=== PATIENT | female | born 1960 | race Caucasian/White ===

== ENCOUNTER 2017-02-02 09:00 | Outpatient (RCR) | payer BC | END 2017-02-15 15:11 | disposition home or self-care (01) | PROVIDERS: ATTEND Orthopaedic Surgery | DX: M79.641 Pain in right hand (principal); M79.642 Pain in left hand; Z98.890 Other specified postprocedural states ==

== ENCOUNTER 2017-07-06 05:59 | Outpatient (CLI) | payer BC ==
[~2017-07-06] VITALS: Ht 162.6 cm; Wt 80.3 kg
[2017-07-06] MEDS ORDERED: ERGO50006 PO (09:14)
[2017-07-06] MEDS ORDERED: GABA-488 PO (09:14)
[2017-07-06] MEDS ORDERED: LEVO25TA5 PO (09:17)
[2017-07-07] MEDS ORDERED: PANT40TA2 PO (13:19)
== END 2017-07-06 09:26 ==
LOC: PREOP 05:59
PROVIDERS: ATTEND Surgery
DX: Z01.818 Encounter for other preprocedural examination (principal); R10.9 Unspecified abdominal pain; K21.9 Gastro-esophageal reflux disease without esophagitis; Z86.010 Personal history of colon polyps

== ENCOUNTER 2017-07-07 11:03 | Day surgery (SDC) | payer BC ==
[~2017-07-07] VITALS: Ht 162.6 cm; Wt 80.3 kg
[~2017-07-07 11:03] MED LIST: ERGO50006 PO; GABA-488 PO; LEVO25TA5 PO
--- NOTE | 2017-07-07 11:10 | Progress Note-Pre Operative ---
Pre-Operative Progress Note H&P Reviewed The H&P was reviewed, patient examined and no changes noted. Date Seen by Provider: Jul 07, 2017 Time Seen by Provider: 11:00 Date H&P Reviewed: Jul 07, 2017 Time H&P Reviewed: 11:00 Pre-Operative Diagnosis: GERD, abd pain, hx polyp APOLINAR LORD MD Jul 07, 2017 11:10 am
--- NOTE | 2017-07-07 11:10 | Conscious Sedation/ASA ---
Conscious Sedation Pre-Proced Time Reviewed: 11:00 ASA Class: 2 Airway Mallampati Classification: ([place] appropriate class) I. II. III, IV Lungs Heart ASA score ASA 1: a normal healthy patient ASA 2: a patient with a mild systemic disease (mid diabetes, controlled hypertension, obesity ASA 3: a patient with a severe systemic disease that limits activity (angina , COPD, prior Myocardial infarction) ASA 4: a patient with an incapacitating disease that is a constant threat to life (CHF, renal failure) ASA 5: a moribund patient not expected to survive 24 hrs. (ruptured aneurysm) ASA 6: a declared brain patient whose organs are being harvested. For emergent operations, add the letter E after the classification Grade 2 Sedation Plan: Analgesia, Amnesia, Plan communicated to team members, Discussed options with patient/fam, Discussed risks with patient/fam Note The patient is an appropriate candidate to undergo the planned procedure, sedation, and anesthesia. The patient immediately re-assessed prior to indication. APOLINAR LORD MD Jul 07, 2017 11:10 am
[2017-07-07] MEDS ORDERED: morphine INJ 10 MG/ML 1ML (SYR OR VIAL) IV PRN (11:15)
[2017-07-07] MEDS ORDERED: LIDOCAINE JELLY 2% (XYLOCAINE) 5 ML TUBE MM PRN (11:15)
[2017-07-07] MEDS ORDERED: ACETAMINOPHEN 325 MG TABLET/CAPLET (TYLENOL) PO PRN (11:15)
[2017-07-07] MEDS ORDERED: ONDANSETRON 4 MG/2 ML (SDV) Z0FRAN IV PRN (11:15)
[2017-07-07] MEDS ORDERED: HURRICAINE EXT TUBE (BENZOCAINE) XX PRN (11:15)
[2017-07-07] MEDS ORDERED: HYDROcodone/APAP 5 MG/325 MG (LORTAB) TAB PO PRN (11:15)
[2017-07-07] MEDS ORDERED: NS IV 500 ML 500 ML IV PRN (11:30)
[2017-07-07] MEDS ORDERED: fentaNYL INJECTION 100 MCG/2 ML AMP ONE ×2 (12:09)
[2017-07-07] MEDS ORDERED: LIDOCAINE JELLY 2% (XYLOCAINE) 5 ML TUBE ONE (12:09)
[2017-07-07] MEDS ORDERED: MIDAZOLAM 2 MG/2 ML (VERSED) VIAL ONE ×5 (12:10)
[2017-07-07] MEDS: fentaNYL INJECTION 100 MCG/2 ML AMP IVP PRN ×3 (12:27→13:00)
[2017-07-07 12:30] VITALS: BP 133/91
[2017-07-07] MEDS: MIDAZOLAM 2 MG/2 ML (VERSED) VIAL IVP PRN ×4 (12:38→12:55)
--- NOTE | 2017-07-07 13:18 | Progress Note-Post Operative ---
Post-Operative Progess Note Surgeon (s)/It Help Desk Associate (s) Surgeon APOLINAR LORD MD It Help Desk Associate: none Pre-Operative Diagnosis GERD, abd pain, hx polyp Post-Operative Diagnosis reflux esophagits(class B0, small-mod HH(2cm), mild gastitis. chronic stage 1 ext and int hemorrhoids, mild-mod diverticulosis. Procedure & Operative Findings Date of Procedure 07/07/17 Procedure Performed/Findings EGD with bx. Colonoscopy. Anesthesia Type CS Estimated Blood Loss Estimated blood loss (mL): minimal Specimens/Packing Specimens Removed GE jxn, antrum APOLINAR LORD MD Jul 07, 2017 1:18 pm
[2017-07-07] MEDS ORDERED: PANT40TA2 PO (13:19)
--- NOTE | 2017-07-07 13:20 | Discharge Inst-Surgical ---
D/C Lap Instructions-KIDO New, Converted, or Re-Newed RX: RX on Chart Follow Up PRN Activity as tolerated High Fiber Diet 25g or more per day Avoid Alcohol, Caffeine, Spicy [place] and Acid foods. Drink 64 fluid oz or more of fluids per day. Symptoms to Report: Fever over 101 degree F, Nausea/Vomiting If any problems/questions: Contact your physician or go to Emergency Room APOLINAR LORD MD Jul 07, 2017 1:20 pm
[2017-07-07 13:45] VITALS: BP 118/77
[2017-07-07 14:15] VITALS: BP 123/88
[2017-07-07 14:25] VITALS: BP 123/88
--- NOTE | 2017-07-07 20:54 | OPERATIVE REPORT ---
DATE OF SERVICE: 07/07/2017 ATTENDING PRIMARY CARE PHYSICIAN: Dr. Zhang. PREOPERATIVE DIAGNOSES: Abdominal pain, gastroesophageal reflux disease, history of colon polyps. POSTOPERATIVE DIAGNOSES: Reflux esophagitis, class B; small hiatal hernia, approximately 2 cm in size; mild gastritis. Chronic stage I external and internal hemorrhoids, mild to moderate sigmoid diverticulosis. PROCEDURES PERFORMED: EGD with biopsy, colonoscopy. SURGEON: Apolinar Graves MD. ANESTHESIA: Conscious sedation. ESTIMATED BLOOD LOSS: Minimal. FINDINGS: EGD: Reflux esophagitis, class B; small hiatal hernia, approximately 2 cm in size; mild gastritis; pylorus and duodenum appeared normal. Colonoscopy: Chronic stage I external and internal hemorrhoids, mild to moderate sigmoid diverticulosis with no mucosal inflammatory change to indicate any active diverticulitis. The remainder of the colon was normal. DISPOSITION: The patient tolerated the procedure well. INDICATIONS: The patient is a 57-year-old female with multiple gastrointestinal complaints. She reports that she developed crampy abdominal pain towards the flank on an intermittent basis for the past 9 months. She is unsure of what this is; however, states that the pain is there consistently. She also reports crampy abdominal pain towards the abdomen as well. She has a history of peptic ulcer disease as well as gastroesophageal reflux disease as well as history of colon polyps. She underwent an EGD and colonoscopy in 2001, were several polyps were identified and removed and found to be benign. A second followup colonoscopy was in 2006, where 2 polyps were identified and these were again benign. She does report worsening issues with reflux as well as occasional nausea. She had Hemoccult test, which was positive. DESCRIPTION OF PROCEDURE: The patient was brought to the endoscopy suite, laid in the left lateral decubitus position. After adequate IV pain, sedating medications and conscious sedation anesthesia, a mouthpiece was applied. The endoscope was then placed in the mouth, visualizing the pharynx and hypopharynx. The endoscope was placed in the mouth, visualizing the pharynx and hypopharyngeal region. Vocal cords, epiglottis and vallecula identified and appeared to be normal. The endoscope was then gently intubated into esophageal opening, esophagus was insufflated. Endoscope was then advanced to the first, second and third portions of the esophagus. At the level of the GE junction, a reflux esophagitis, class B identified. There were no ulcers or strictures identified in this region. A biopsy was taken using forceps with visualization of good hemostasis. The endoscope was then easily advanced in the stomach and then endoscope retroflexed visualizing a small to a moderate size hiatal hernia approximately 2 cm in size. There was a mild gastritis noted. There were no formal ulcers, polyps or any neoplasms identified. A biopsy was taken of the stomach antrum for H. pylori with forceps with visualization of good hemostasis. The endoscope was then advanced through the pylorus and the first and second portions of the duodenum, which appeared normal with no distal obstructions. The endoscope was slowly withdrawn taking a second look and suctioning residual air with no additional findings. The patient tolerated this portion of the procedure well. We will recommend the necessary lifestyle and diet accommodation including small and more frequent meals, avoidance of eating at night as well as head elevation while lying supine. She also needs to avoid caffeinated beverages, spicy, greasy and acidic foods. We will also start her on Protonix 40 mg daily. If she has continued reflux symptoms that the progresses to regurgitation, then we will proceed with further evaluations and studies, included an esophageal manometry study for possible hiatal hernia repair. Under the same conscious sedation anesthesia, we then proceeded with the colonoscopy portion of the procedure. Chronic mild stage 1 external and internal hemorrhoids were identified which were not actively edematous or inflamed and no bleeding. Normal sphincter tone was felt and there were no palpable masses. The endoscope was then intubated to the anus and rectum and gently insufflated. The endoscope was then advanced to the valves of Ro in the rectum with no polyps or any neoplasms identified. The endoscope was then advanced to the sigmoid colon where a mild to moderate sigmoid diverticulosis identified. There were no mucosal inflammatory changes to indicate any active diverticulitis. The endoscope was then advanced to the remainder of the descending, transverse, ascending colon and the cecum. These segments were normal. There were no polyps or any neoplasms identified throughout the colon or rectum. There were also no inflammatory changes. The endoscope was then slowly withdrawn taking a second look and suctioning residual air with no additional findings. The patient tolerated the procedure well. We will have her continue with a medical management with a high fiber diet with at least 30 grams of fiber per day as well as at least 64 fluid ounces of water daily to promote soft stools on a daily basis. Job ID: [id number] DocumentID: [id number] Dictated Date: 07/07/2017 13:18:44 Dope Edger Date: 07/07/2017 20:53:31 Dictated By: APOLINAR GRAVES MD
== END 2017-07-07 14:25 | disposition home or self-care (01) ==
LOC: ENDO 11:03
PROVIDERS: ATTEND Surgery
DX: K21.0 Gastro-esophageal reflux disease with esophagitis (principal); K44.9 Diaphragmatic hernia without obstruction or gangrene; K29.70 Gastritis, unspecified, without bleeding; K57.30 Diverticulosis of large intestine without perforation or abscess without bleeding; K64.0 First degree hemorrhoids; M79.7 Fibromyalgia; Z86.718 Personal history of other venous thrombosis and embolism; E03.9 Hypothyroidism, unspecified; Z79.899 Other long term (current) drug therapy; Z87.891 Personal history of nicotine dependence

== ENCOUNTER 2017-07-27 15:14 | Outpatient (RCR) | payer BC ==
[~2017-07-27 15:14] MED LIST changes: +PANT40TA2 PO
== END 2017-10-25 | disposition home or self-care (01) ==
LOC: LAB 15:14
PROVIDERS: ATTEND Surgery
DX: R19.7 Diarrhea, unspecified (principal); K92.1 Melena
CPT/HCPCS: 87324; 87449

== ENCOUNTER 2018-08-15 10:26 | Emergency (ER) | payer BC ==
[~2018-08-15] VITALS: Ht 154.9 cm; Wt 77.1 kg
[2018-08-15] MEDS ORDERED: KETOROLAC 30 MG/ML VIAL IVP ONE (11:00)
--- NOTE | 2018-08-15 11:05 | ED Headache ---
General Chief Complaint: Head/Cervical Problems Stated Complaint: SEVERE HEADACHE Nursing Triage Note: AMB TO ED FROM [facility] PATIENT HAS HEADACHE FJOR 2 WEEKS. HEADACHE HAS BEEN INTERMITTEN. Nursing Sepsis Screen: No Definite Risk Source: patient, family (daughter) Exam Limitations: no limitations History of Present Illness Date Seen by Provider: Aug 15, 2018 Time Seen by Provider: 10:29 Initial Comments Patient presents the ER by private conveyance from urgent care where she was seen just prior to arrival. She's had a headache it's been daily for the past 2 weeks. She says the headache is left-sided with some paresthesias or tingling on the left side of her face and cheek. Sometimes extend into her temporal area. She has not had any viral illnesses or sickness lately. She thinks 3 weeks ago she started summer quit for restless leg syndrome. The daughter had a lot of concerns about possibility of stroke and that may be because of that tingling and headache she might be having some other neurologic symptoms and so urgent care practitioner called ahead and gave report and sent the patient to the ER for further evaluation. The patient has a history of migraine headaches but this is different. There is no photophobia and phonophobia throbbing. She says the headache comes all throughout the day when she is at work as well as at night last for 10-12 hrs. or more and is only marginally helped with ibuprofen. She uses ibuprofen chronically for her bursitis and fibromyalgia. She does not have a history of coronary artery disease atrial fibrillation, strokes. She is a historical smoker. She's not used Tylenol aspirin or Excedrin or any other medication for it. She's not having any ear pain, ears underwater popping sensation, runny nose, sore throat, cough congestion and fever colds or chills. She did have some nausea but after a shot of Zofran and her nausea went away from the urgent care. Allergies and Home Medications Allergies Coded Allergies: Sulfa (Sulfonamide Antibiotics) (Verified Allergy, Intermediate, RASH, ) Tetracyclines (Verified Allergy, Intermediate, GI UPSET, 07/06/17) amoxicillin (Verified Allergy, Intermediate, GI UPSET, 07/06/17) clavulanic acid (Verified Allergy, Intermediate, GI UPSET, 07/06/17) fentanyl (Verified Allergy, Unknown, 08/15/18) morphine (Verified Allergy, Unknown, RASH, 07/07/17) promethazine (Verified Allergy, Unknown, RASH, 07/07/17) Patient Home Medication List Home Medication List Reviewed: Yes Review of Systems Review of Systems Constitutional: No chills, No diaphoresis Eyes: Denies Blindness, Denies Blurred Vision, Denies Photophobia Ears, Nose, Mouth, Throat: denies ear pain, denies ear discharge Respiratory: No cough, No phlegm, No short of breath Cardiovascular: No chest pain, No edema, No Hx of Intervention, No palpitations , No syncope, No vascular heart diseas Gastrointestinal: No abdominal pain, No constipation, No diarrhea; nausea, vomiting Genitourinary: No discharge, No dysuria Musculoskeletal: No back pain, No joint pain Past Iwioqoi-Ewlwsq-Bxziqr Hx Patient Social History Alcohol Use: Denies Use Recreational Drug Use: No Smoking Status: Former Smoker Type Used: Cigarettes Former Smoker, Quit: Jul 06, 2009 Recent Foreign Travel: No Contact w/Someone Who Travel: No Recent Infectious Disease Expo: No Recent Hopitalizations: No Immunizations Up To Date Tetanus Booster (TDap): Unknown Date of Pneumonia Vaccine: May 30, 2016 Date of Influenza Vaccine: May 30, 2016 Seasonal Allergies Seasonal Allergies: Yes (SINUS INFECTION LAST 9 MONTHS) Past Medical History Surgeries: Yes (RT SHOULDER, TORN BICEPS REPAIR) Appendectomy, Gallbladder, Hysterectomy, Oophorectomy, Tonsillectomy Respiratory: Yes Pulmonary Embolism Cardiac: Yes (DVT x5) Deep Vein Thrombosis Neurological: Yes Headaches /Migraines Reproductive Disorders: No Sexually Transmitted Disease: No Gastrointestinal: Yes (BLOATING/ABD PAIN, HX POLYPS) Gastroesophageal Reflux, Chronic Constipation, Chronic Diarrhea, Polyps Musculoskeletal: Yes Fibromyalgia Endocrine: Yes Loss of Vision: Bilateral Hearing Impairment: Denies Cancer: No Psychosocial: No Integumentary: No Blood Disorders: Yes (MILD ANEMIA) Adverse Reaction/Blood Tranf: No Physical Exam Vital Signs Vital Signs - First Documented 08/15/18 08/15/18 10:29 11:52 Temp 96.2 Pulse 68 Resp 18 B/P (MAP) 193/113 (139) Pulse Ox 98 O2 Delivery Room Air Capillary Refill : Less Than 3 Seconds Height, Weight, BMI Height: 5'1.00" Weight: 170lbs. 0.0oz. 77.790186sl; 30.4 BMI Method:Stated General Appearance: WD/WN, mild distress HEENT: PERRL/EOMI, normal ENT inspection, pharynx normal, other (mild otosclerosis with some clear effusion noted bilaterally) Neck: non-tender, full range of motion, supple, normal inspection Cardiovascular: normal peripheral pulses, regular rate, rhythm, no edema, no murmur Respiratory: chest non-tender, lungs clear, normal breath sounds, no respiratory distress, no accessory muscle use Extremities: normal range of motion, non-tender, normal inspection, no pedal edema, normal capillary refill Psychiatric: alert, oriented x 3; No lethargic [place] Nerves: normal hearing, normal speech, PERRL Coordination/Gait: normal finger to nose, normal gait Motor/Sensory: no motor deficit, no sensory deficit, no pronator drift Reflexes: 2+ Knee (R), 2+ Knee (L) Skin: normal color, warm/dry Progress/Results/Core Measures Results/Orders Lab Results Laboratory Tests Test 08/15/18 11:11 08/15/18 11:47 Range/Units Urine Color YELLOW Urine Clarity CLEAR Urine pH 5 5-9 Urine Specific [place] 1.010 L 1.016-1.022 Urine Protein NEGATIVE NEGATIVE Urine Glucose (UA) NEGATIVE NEGATIVE Urine Ketones NEGATIVE NEGATIVE Urine Nitrite NEGATIVE NEGATIVE Urine Bilirubin NEGATIVE NEGATIVE Urine Urobilinogen NORMAL NORMAL MG/DL Urine Leukocyte Esterase NEGATIVE NEGATIVE Urine RBC (Auto) NEGATIVE NEGATIVE Urine RBC NONE /HPF Urine WBC NONE /HPF Urine Squamous Epithelial Cells NONE /HPF Urine Renal Epithelial Cells NONE /HPF Urine Crystals NONE /LPF Urine Bacteria NEGATIVE /HPF Urine Casts NONE /LPF Urine Mucus SMALL H /LPF Urine Culture Indicated NO Urine Opiates Screen NEGATIVE NEGATIVE Urine Oxycodone Screen NEGATIVE NEGATIVE Urine Methadone Screen NEGATIVE NEGATIVE Urine Propoxyphene Screen NEGATIVE NEGATIVE Urine Barbiturates Screen NEGATIVE NEGATIVE Ur Tricyclic Antidepressants Screen NEGATIVE NEGATIVE Urine Phencyclidine Screen NEGATIVE NEGATIVE Urine Amphetamines Screen NEGATIVE NEGATIVE Urine Methamphetamines Screen NEGATIVE NEGATIVE Urine Benzodiazepines Screen NEGATIVE NEGATIVE Urine Cocaine Screen NEGATIVE NEGATIVE Urine Cannabinoids Screen NEGATIVE NEGATIVE White Blood Count 7.3 4.3-11.0 10^3/uL Red Blood Count 4.96 4.35-5.85 10^6/uL Hemoglobin 14.2 11.5-16.0 G/DL Hematocrit 43 35-52 % Mean Corpuscular Volume 86 80-99 FL Mean Corpuscular Hemoglobin 29 25-34 PG Mean Corpuscular Hemoglobin Concent 33 32-36 G/DL Red Cell Distribution Width 13.6 10.0-14.5 % Platelet Count 337 130-400 10^3/uL Mean Platelet Volume 8.9 7.4-10.4 FL Neutrophils (%) (Auto) 48 42-75 % Lymphocytes (%) (Auto) 44 12-44 % Monocytes (%) (Auto) 7 0-12 % Eosinophils (%) (Auto) 1 0-10 % Basophils (%) (Auto) 0 0-10 % Neutrophils # (Auto) 3.5 1.8-7.8 X 10^3 Lymphocytes # (Auto) 3.2 1.0-4.0 X 10^3 Monocytes # (Auto) 0.5 0.0-1.0 X 10^3 Eosinophils # (Auto) 0.0 0.0-0.3 10^3/uL Basophils # (Auto) 0.0 0.0-0.1 10^3/uL Erythrocyte Sedimentation Rate 12 0-30 MM/HR Sodium Level 142 135-145 MMOL/L Potassium Level 3.9 3.6-5.0 MMOL/L Chloride Level 109 H 98-107 MMOL/L Carbon Dioxide Level 22 21-32 MMOL/L Anion Gap 11 5-14 MMOL/L Blood Urea Nitrogen 19 H 7-18 MG/DL Creatinine 0.80 0.60-1.30 MG/DL Estimat Glomerular Filtration Rate > 60 BUN/Creatinine Ratio 24 Glucose Level 87 70-105 MG/DL Calcium Level 9.9 8.5-10.1 MG/DL Corrected Calcium 9.7 8.5-10.1 MG/DL Total Bilirubin 0.5 0.1-1.0 MG/DL Aspartate Amino Transf (AST/SGOT) 18 5-34 U/L Alanine Aminotransferase (ALT/SGPT) 19 0-55 U/L Alkaline Phosphatase 78 40-136 U/L Troponin I < 0.30 <0.30 NG/ML C-Reactive Protein High Sensitivity 0.11 0.00-0.50 MG/DL Total Protein 7.0 6.4-8.2 GM/DL Albumin 4.2 3.2-4.5 GM/DL Thyroid Stimulating Hormone (TSH) 3.09 0.35-4.94 UIU/ML Reza Cobb - SUDARSHAN FU Cbc With Automated Diff (08/15/18 10:56) Comprehensive Metabolic Panel (08/15/18 10:56) Hs C Reactive Protein (08/15/18 10:56) Drug Screen Stat (Urine) (08/15/18 10:56) Thyroid Stimulating Hormone (08/15/18 10:56) Troponin I (08/15/18 10:56) Ua Culture If Indicated (08/15/18 10:56) Erythrocyte Sedimentation Rate (08/15/18 10:56) Ct Head Wo (08/15/18 10:56) Saline Lock/Iv-Start (08/15/18 10:56) Chest 1 View, Ap/Pa Only (08/15/18 10:56) Ketorolac Injection (Toradol Injection) (08/15/18 11:00) Fentanyl Injection (Sublimaze Injection (08/15/18 12:30) Hydrocodone/Apap 5/325 Tablet (Lortab 5 (08/15/18 13:15) Acetaminophen Tablet (Tylenol Tablet) (08/15/18 13:15) Diphenhydramine Tablet (Benadryl Tablet) (08/15/18 13:15) Medications Given in ED Current Medications Medications Dose Ordered Sig/Sayda Route Start Time Stop Time Status Last Admin Dose Admin Acetaminophen 500 mg ONCE ONCE PO 08/15/18 13:15 08/15/18 13:16 DC 08/15/18 13:19 500 MG Acetaminophen/ Hydrocodone Bitart 1 tab ONCE ONCE PO 08/15/18 13:15 08/15/18 13:16 DC 08/15/18 13:19 1 TAB Diphenhydramine HCl 50 mg ONCE ONCE PO 08/15/18 13:15 08/15/18 13:16 DC 08/15/18 13:16 50 MG Ketorolac Tromethamine 30 mg ONCE ONCE IVP 08/15/18 11:00 08/15/18 11:01 DC 08/15/18 11:20 30 MG Vital Signs/I&O 08/15/18 08/15/18 10:29 11:52 Temp 96.2 Pulse 68 65 Resp 18 18 B/P (MAP) 193/113 (139) 138/72 (94) Pulse Ox 98 O2 Delivery Room Air Blood Pressure Mean: 139 Progress Progress Note : Time: 11:07 Progress Note Certainly concerning red flags for a change in her headache pattern, headaches that wake her up and headaches that having going on for the past 2 weeks. We will get a CT scan to rule out intracranial pathologies. Since she has the paresthesias of her left face and no tenderness to palpation on the temporal artery region makes me think about trigeminal neuralgias. She had chickenpox as a child but has never had shingles. There is no erythematous or itchy rash. We' ll start with some pain medicine Toradol 30 mg IV. She says at the urgent care her blood pressure was normal 138 systolic but here is 190. She does appear quite anxious and her daughters strong concerns for stroke probably does not help this. Her NIH is 1 pt for facial parasthesias alone. CVAs are not usually intermittent like her pattern for the past two weeks but if there was a stroke 2 weeks ago then it should be evident on non-contrast CT. I discussed with her our workup plan to include EKG chest x-ray labs urine and a CT head. If her blood pressure does not improve with some rest and Toradol and we can consider more invasive treatment if necessary. As far as her daughter's concerned that the patient was acting "slowed mentation" it is my impression she is acting consistent with somebody who is not having a lot of sleep and having an unrelenting headache for the past 2 weeks. Her daughter has requested that we give her aspirin to help treat her stroke like symptoms. 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 We will hold off any oral medications until we have completed more of a workup. She has no meningismus signs, fever or evidence of sirs criteria. Initial ECG Impression Date: Aug 15, 2018 Diagnostic Imaging Diagonstic Imaging: Xray Plain Films/CT/US/NM/MRI: chest (1v) Comments No acute cardiopulmonary processes noted 1 view chest. No comparative x-rays. [facility] [place], [place] NAME: GAGE CÁRDENAS [facility] REC#: [id number] PT STATUS: REG ER : 1960 PHYSICIAN: SUDARSHAN FU MD ADMIT DATE: 08/15/18/ER Draft Date of Exam:08/15/18 CHEST 1 VIEW, AP/PA ONLY INDICATION: Headache and elevated blood pressure. TIME OF EXAM: 11:17 a.m. No prior studies are available for comparison. The heart size is normal. The pulmonary vascularity is unremarkable. The lungs are clear. No infiltrate, effusion or pneumothorax is detected. IMPRESSION: No acute cardiopulmonary process is detected. Dictated on workstation # [id number] Dict: 08/15/18 1128 Trans: 08/15/18 1130 [facility] [id number] Interpreted by: LAURENCE ALBERT MD Electronically signed by: Reviewed: Reviewed by Me Diagonstic Imaging: CT (without contrast) Plain Films/CT/US/NM/MRI: head Comments VIA [facility]. [place], [place] NAME: GAGE CÁRDENAS [facility] REC#: [id number] PT STATUS: REG ER : 1960 PHYSICIAN: SUDARSHAN FU MD ADMIT DATE: 08/15/18/ER Draft Date of Exam:08/15/18 CT HEAD WO CLINICAL INDICATION: Patient with left-sided headache frontal and back. EXAM: Axial CT scan of the brain without contrast. COMPARISON: None. FINDINGS: There is no evidence of acute cerebral infarct, intracranial hemorrhage, or gross mass effect. The brain parenchymal volume appears appropriate for patient's age. There are small focal and patchy areas of low-attenuation white matter changes seen throughout both cerebral hemispheres. There is normal martini-white matter distinction. There is no significant midline shift or herniation. There is no evidence of hydrocephalus. The basal cisterns are unremarkable. The skull, extracranial soft tissue, and orbits are unremarkable. The paranasal sinuses are unremarkable. Temporal bones show no significant abnormality. IMPRESSION: 1: Unremarkable CT scan of the brain for age. 2: Suspected chronic small vessel ischemic disease. Dictated on workstation # [id number] Dict: 08/15/18 1225 Trans: 08/15/18 1230 [id number] Interpreted by: INDIRA JONES MD Electronically signed by: Reviewed: Reviewed by Me Departure Impression Primary Impression: Headache Qualified Codes: R51 - Headache Additional Impression: Trigeminal neuralgia of left side of face Disposition: 01 HOME, SELF-CARE Condition: Stable Departure-Patient Inst. Decision time for Depature: 13:49 Referrals: KAMARI BARRIGA MD (PCP/Family) Primary Care Physician Patient Instructions: Trigeminal Neuralgia Add. Discharge Instructions: Tylenol 1000 mg every 8 hours in addition to ibuprofen 800 mg every 8 hours. If you're still having severe pain you can try the hydrocodone one tablet every 6 hours as needed.. Nausea you can take one tablet of Zofran place under your tongue and allowed to dissolve every 6 hours as needed. Call outpatient MRI to get set up for your brain MRI today or tomorrow. Follow- up with Dr. Barriga later this week or early next week for the results. All discharge instructions reviewed with patient and/or family. Voiced understanding. Scripts Ondansetron (Ondansetron Odt) 4 Mg Tab.rapdis 4 MG PO Q6H PRN for NAUSEA/VOMITING, #10 TAB 0 Refills Prov: SUDARSHAN FU 08/15/18 Hydrocodone Bit/Acetaminophen (Hydrocodone/Acetaminophen 5/325mg Tablet) 1 Tab Tab 1-2 EACH PO Q6H PRN for BREAKTHROUGH PAIN MDD 10, #15 TAB 0 Refills Prov: SUDARSHAN FU 08/15/18 Copy Copies To 1: KAMARI BARRIGA MD, TITUS J Aug 15, 2018 11:05
[2018-08-15 11:17] LABS: BILIRUBIN,URINE NEGATIVE (NEGATIVE); CLARITY,URINE CLEAR; COLOR,URINE YELLOW; GLUCOSE, URINE (UA) NEGATIVE (NEGATIVE); KETONES,URINE NEGATIVE (NEGATIVE); LEUKOCYTE ESTERASE ,URINE NEGATIVE (NEGATIVE); NITRITE,URINE NEGATIVE (NEGATIVE); PH,URINE 5 (5-9); PROTEIN,URINE NEGATIVE (NEGATIVE); UROBILINOGEN,URINE NORMAL (NORMAL)
--- NOTE | 2018-08-15 11:31 | Diagnostic Imaging Report ---
INDICATION: Headache and elevated blood pressure. TIME OF EXAM: 11:17 a.m. No prior studies are available for comparison. The heart size is normal. The pulmonary vascularity is unremarkable. The lungs are clear. No infiltrate, effusion or pneumothorax is detected. IMPRESSION: No acute cardiopulmonary process is detected. Dictated by: Dictated on workstation # [id number]
[2018-08-15 11:35] LABS: AMPHETAMINE SCREEN, URINE NEGATIVE (NEGATIVE); BARBITURATE SCREEN URINE NEGATIVE (NEGATIVE); BENZODIAZEPINES SCREEN URINE NEGATIVE (NEGATIVE); CANNABINOID SCREEN, URINE NEGATIVE (NEGATIVE); COCAINE SCREEN URINE NEGATIVE (NEGATIVE); METHADONE STAT NEGATIVE (NEGATIVE); METHAMPHETAMINE SCREEN URINE S NEGATIVE (NEGATIVE); OPIATE SCREEN URINE NEGATIVE (NEGATIVE); OXYCODONE STAT NEGATIVE (NEGATIVE); PROPOXYPHENE STAT NEGATIVE (NEGATIVE); TRICYCLIC ANTIDEPRESSANTS SCRE NEGATIVE (NEGATIVE)
[2018-08-15 11:52] VITALS: BP 138/72
[2018-08-15 11:52] LABS: BASOPHILS % (AUTO) 0 % (0-10); EOSINOPHILS % (AUTO) 1 % (0-10); HEMATOCRIT 43 % (35-52); HEMOGLOBIN 14.2 G/DL (11.5-16.0); LYMPHOCYTES # (AUTO) 3.2 X 10^3 (1.0-4.0); LYMPHOCYTES % (AUTO) 44 % (12-44); MEAN CORPUSCULAR HEMOGLOBIN 29 PG (25-34); MEAN CORPUSCULAR HGB CONC 33 G/DL (32-36); MEAN CORPUSCULAR VOLUME 86 FL (80-99); MEAN PLATELET VOLUME 8.9 FL (7.4-10.4); MONOCYTES # (AUTO) 0.5 X 10^3 (0.0-1.0); MONOCYTES % (AUTO) 7 % (0-12); NEUTROPHILS # (AUTO) 3.5 X 10^3 (1.8-7.8); NEUTROPHILS % (AUTO) 48 % (42-75); PLATELET COUNT 337 10^3/uL (130-400); RED BLOOD COUNT 4.96 10^6/uL (4.35-5.85); RED CELL DISTRIBUTION WIDTH 13.6 % (10.0-14.5); WHITE BLOOD COUNT 7.3 10^3/uL (4.3-11.0)
[2018-08-15 11:57] LABS: BACTERIA,URINE NEGATIVE /HPF
[2018-08-15 12:13] LABS: ALANINE AMINOTRANSFERASE 19 U/L (0-55); ALBUMIN 4.2 GM/DL (3.2-4.5); ALKALINE PHOSPHATASE 78 U/L (40-136); BILIRUBIN,TOTAL 0.5 MG/DL (0.1-1.0); BUN/CREATININE RATIO 24; CALCIUM 9.9 MG/DL (8.5-10.1); CARBON DIOXIDE 22 MMOL/L (21-32); CHLORIDE 109 MMOL/L (98-107); GFR ESTIMATED > 60; GLUCOSE 87 MG/DL (70-105); POTASSIUM 3.9 MMOL/L (3.6-5.0); SODIUM 142 MMOL/L (135-145)
[2018-08-15 12:17] LABS: ERYTHROCYTE SEDIMENTATION RATE 12 MM/HR (0-30)
[2018-08-15] MEDS ORDERED: fentaNYL INJECTION 100 MCG/2 ML AMP IVP ONE (12:30)
--- NOTE | 2018-08-15 12:30 | Diagnostic Imaging Report ---
CLINICAL INDICATION: Patient with left-sided headache frontal and back. EXAM: Axial CT scan of the brain without contrast. COMPARISON: None. FINDINGS: There is no evidence of acute cerebral infarct, intracranial hemorrhage, or gross mass effect. The brain parenchymal volume appears appropriate for patient's age. There are small focal and patchy areas of low-attenuation white matter changes seen throughout both cerebral hemispheres. There is normal martini-white matter distinction. There is no significant midline shift or herniation. There is no evidence of hydrocephalus. The basal cisterns are unremarkable. The skull, extracranial soft tissue, and orbits are unremarkable. The paranasal sinuses are unremarkable. Temporal bones show no significant abnormality. IMPRESSION: 1: Unremarkable CT scan of the brain for age. 2: Suspected chronic small vessel ischemic disease. Dictated by: Dictated on workstation # [id number]
[2018-08-15] MEDS ORDERED: HYDROcodone/APAP 5 MG/325 MG (LORTAB) TAB PO ONE (13:15)
[2018-08-15] MEDS ORDERED: ACETAMINOPHEN 500 MG TAB (TYLENOL) PO ONE (13:15)
[2018-08-15] MEDS ORDERED: diphenhydrAMINE 25 MG TAB (BENADRYL) PO ONE (13:15)
[2018-08-15] MEDS ORDERED: ONDA4TAB11 PO (13:52)
[2018-08-15] MEDS ORDERED: ACHD5005 PO (13:52)
[2018-08-15 13:59] VITALS: BP 131/97
== END 2018-08-15 14:05 | disposition home or self-care (01) ==
LOC: EDUNIT# 10:26 → ER 10:28
DX: R51 Headache (principal); G50.0 Trigeminal neuralgia; K21.9 Gastro-esophageal reflux disease without esophagitis; D64.9 Anemia, unspecified; Z86.010 Personal history of colon polyps; Z87.19 Personal history of other diseases of the digestive system; Z88.0 Allergy status to penicillin; Z88.5 Allergy status to narcotic agent; Z88.8 Allergy status to other drugs, medicaments and biological substances; Z88.1 Allergy status to other antibiotic agents; Z87.891 Personal history of nicotine dependence; Z90.710 Acquired absence of both cervix and uterus; Z90.49 Acquired absence of other specified parts of digestive tract; Z90.89 Acquired absence of other organs; Z86.711 Personal history of pulmonary embolism; Z86.718 Personal history of other venous thrombosis and embolism
CPT/HCPCS: 36415; 70450; 71045; 80053; 80306; 81000; 84443; 84484; 85025; 85652; 86141; 96374

== ENCOUNTER → 2019-04-03 | Outpatient (CLI) | payer BC ==
[~2019-04-03] MED LIST changes: +ACHD5005 PO; +ONDA4TAB11 PO
--- NOTE | 2019-04-03 10:56 | Diagnostic Imaging Report ---
INDICATION: Followup left breast densities. COMPARISON: 12/07/2017. TECHNIQUE: 2D and 3D bilateral diagnostic mammography was performed with CAD. FINDINGS: Scattered fibroglandular densities are identified bilaterally. Circumscribed tiny nodules in the upper outer left breast at posterior depth are stable. A tiny nodule at the 3 o'clock location in the left breast at mid depth is also stable. No new mass or malignant appearing microcalcifications are seen. The axillae are unremarkable. IMPRESSION: Stable tiny circumscribed nodules in the left breast, consistent with intramammary lymph nodes. The patient may return to routine annual screening mammography. ACR BI-RADS Category 2: Benign findings. Result letter will be mailed to the patient. Note: At least 10% of breast cancer is not imaged by mammography. Dictated by: Dictated on workstation # [id number]
== END ==
LOC: RAD 08:49
PROVIDERS: ATTEND Pediatrics
DX: R92.2 Inconclusive mammogram (principal)
CPT/HCPCS: 77066

== ENCOUNTER → 2019-08-26 | Outpatient (CLI) | payer BC ==
--- NOTE | 2019-08-26 15:51 | Diagnostic Imaging Report ---
INDICATION: Nausea. Generalized abdominal pain. COMPARISON: None. FINDINGS: Two supine radiographic views of the abdomen were obtained and demonstrate nondistended loops of small bowel. There is no large collection of free peritoneal air. Mild air and stool are seen scattered throughout the colon. No unexpected extraosseous calcifications or radiopaque foreign bodies are seen. Bony structures show no gross acute abnormalities. IMPRESSION: 1. Nonobstructed small bowel gas pattern. Dictated by: Dictated on workstation # [id number]
== END ==
LOC: RAD 15:03
PROVIDERS: ATTEND Pediatrics
DX: R10.84 Generalized abdominal pain (principal); R11.0 Nausea
CPT/HCPCS: 74018

== ENCOUNTER → 2020-03-17 | Outpatient (CLI) | payer BC ==
--- NOTE | 2020-03-17 18:14 | Diagnostic Imaging Report ---
EXAMINATION: Right lower extremity MRI dated 03/17/2020. TECHNIQUE: Multiplanar, multisequence non contrast-enhanced MRI of the right lower extremity was accomplished. INDICATION: Medial ankle pain, fell off a treadmill. FINDINGS: The Achilles tendon is intact. The peroneal tendons are intact. The extensor and flexor tendons appear intact. There is fluid however along the course of the posterior tibial tendon, perhaps due to tenosynovitis. Similar findings to a lesser degree noted along the course of the flexor digitorum and flexor hallucis longus tendons. The anterior inferior tibiofibular ligament is diffusely thickened but without surrounding edema, suggesting an old injury. It appears intact. The posterior inferior tibiofibular ligament is intact. The anterior talofibular ligament appears intact. The posterior talofibular ligament is intact. The deltoid ligament is unremarkable. Cystic changes noted along the distal medial fibula having a degenerative appearance. Otherwise, the osseous structures are unremarkable. IMPRESSION: 1. Mild tenosynovitis suspected along the course of the flexor tendons as described above with remaining tendons intact. 2. Chronic-appearing injury to the anterior inferior tibiofibular ligament. Remaining ligaments are unremarkable. 3. Degenerative findings, as noted. Dictated by: Dictated on workstation # [id number]
== END ==
LOC: RAD 15:18
PROVIDERS: ATTEND Podiatrist Foot & Ankle Surgery
DX: M76.821 Posterior tibial tendinitis, right leg (principal); G57.51 Tarsal tunnel syndrome, right lower limb; M19.071 Primary osteoarthritis, right ankle and foot
CPT/HCPCS: 73721

== ENCOUNTER 2020-05-07 06:36 | Outpatient (CLI) | payer BC ==
[~2020-05-07] VITALS: Ht 162.6 cm; Wt 85.9 kg
[2020-05-07] MEDS ORDERED: GABA300C PO ×4 (14:39)
[2020-05-07] MEDS ORDERED: LEVO50TA6 PO ×2 (14:39)
[2020-05-07] MEDS ORDERED: PRAM0.12 PO ×2 (14:39)
[2020-05-07] MEDS ORDERED: LISI-556 PO ×2 (14:39)
[2020-05-07] MEDS ORDERED: DULO60CA59 PO ×2 (14:39)
[2020-05-07] MEDS ORDERED: MELO15TA39 PO ×2 (14:39)
== END 2020-05-07 14:55 | disposition home or self-care (01) ==
LOC: PREOP 06:36 → EDSTATUS 14:00 → PREOP 14:55
PROVIDERS: ATTEND Podiatrist Foot & Ankle Surgery
DX: Z01.818 Encounter for other preprocedural examination (principal)

== ENCOUNTER 2020-05-11 06:15 | Day surgery (SDC) | payer BC ==
[2020-05-11] VITALS (12 sets, daily range): BP systolic 101–140; BP diastolic 76–99
[~2020-05-11] VITALS: Ht 162.6 cm; Wt 85.9 kg
[~2020-05-11 06:15] MED LIST changes: +DULO60CA59 PO; +GABA300C PO; +LEVO50TA6 PO; +LISI-556 PO; +MELO15TA39 PO; +PRAM0.12 PO
[2020-05-11] MEDS ORDERED: proPOfol 200 MG/20 ML (DIPRIVAN) VIAL IV ONE (06:53)
[2020-05-11] MEDS ORDERED: MIDAZOLAM 2 MG/2 ML (VERSED) VIAL ONE (06:54)
[2020-05-11] MEDS ORDERED: MEPERIDINE (DEMEROL) INJ 50 MG/ML ONE (07:01)
[2020-05-11] MEDS ORDERED: ceFAZolin INJECTION 1,000 MG ONE (07:12)
[2020-05-11] MEDS ORDERED: WATER (STERILE) FOR INJECTION 10 ML ONE (07:12)
[2020-05-11] MEDS: LACTATED RINGERS 1,000 ML IV PRN ×2 (07:16→08:30)
[2020-05-11] MEDS ORDERED: BUPIVACAINE 0.5% 30 ML (SENSORCAINE) VIAL ONE (07:18)
--- NOTE | 2020-05-11 07:48 | Progress Note-Pre Operative ---
Pre-Operative Progress Note H&P Reviewed The H&P was reviewed, patient examined and no changes noted. Date Seen by Provider: May 11, 2020 Time Seen by Provider: 07:48 Date H&P Reviewed: May 11, 2020 Time H&P Reviewed: 07:48 Pre-Operative Diagnosis: Tarsal Tunnel Syndrome, Plantar Fasciitis, PT Tendonitis, right EVELYN GARZA Q DPM May 11, 2020 07:48
[2020-05-11] MEDS ORDERED: LIDOCAINE PF 2% 5 ML (XYLOCAINE) VIAL ONE (08:20)
[2020-05-11] MEDS ORDERED: SEVOFLURANE (ULTANE) 15 ML INHAL SOLN ONE ×5 (08:20→09:24)
[2020-05-11] MEDS ORDERED: ONDANSETRON 4 MG/2 ML (SDV) Z0FRAN ONE ×2 (08:21→09:42)
--- NOTE | 2020-05-11 09:23 | Progress Note-Post Operative ---
Post-Operative Progess Note Surgeon (s)/Residential Gas Heat Technician (s) Surgeon EVELYN GARZA DPM Residential Gas Heat Technician: none Pre-Operative Diagnosis Tarsal Tunnel Syndrome, Plantar Fasciitis, PT Tendonitis, right Post-Operative Diagnosis Same Procedure & Operative Findings Date of Procedure 05/11/20 Procedure Performed/Findings Tarsal Tunnel release, Plantar fascial release, right foot Anesthesia Type General Estimated Blood Loss Estimated blood loss (mL): Minimal Specimens/Packing Specimens Removed Plantar Fascia, right EVELYN GARZA DPM May 11, 2020 09:23
[2020-05-11] MEDS ORDERED: HYDROmorphone 2 MG/ML VIAL (DILAUDID) ONE (09:27)
[2020-05-11] MEDS ORDERED: LACTATED RINGERS 1,000 ML IV SCH (09:29)
[2020-05-11] MEDS ORDERED: HYDROmorphone 2 MG/ML VIAL (DILAUDID) IV ONE (09:30)
[2020-05-11] MEDS ORDERED: ONDANSETRON 4 MG/2 ML (SDV) Z0FRAN IVP PRN (09:30)
[2020-05-11] MEDS ORDERED: MEPERIDINE (DEMEROL) INJ 50 MG/ML IVP ONE (09:30)
[2020-05-11] MEDS ORDERED: HYDR-3812 PO ×2 (09:34)
[2020-05-11] MEDS ORDERED: ceFAZolin INJECTION 1,000 MG in WATER (STERILE) FOR INJECTION 10 ML IV ONE (10:00)
[2020-05-11] MEDS ORDERED: HYDROcodone/APAP 5 MG/325 MG (LORTAB) TAB ONE (11:03)
[2020-05-11] MEDS ORDERED: HYDROcodone/APAP 5 MG/325 MG (LORTAB) TAB PO ONE (11:15)
--- NOTE | 2020-05-11 11:18 | Anesthesia-General Post-Op ---
General Patient Condition Mental Status/LOC: Same as Preop Cardiovascular: Satisfactory Nausea/Vomiting: Absent Respiratory: Satisfactory Pain: Controlled Complications: Absent Post Op Complications Complications None Follow Up Care/Instructions Patient Instructions None needed. Anesthesia/Patient Condition Patient Condition Patient is doing well, no complaints, stable vital signs, no apparent adverse anesthesia problems. No complications reported per nursing. QI HUDSON CRNA May 11, 2020 11:18
--- NOTE | 2020-05-11 12:14 | Physical Therapy Ortho Eval ---
PT Orthopedic Evaluation Type of Surgery tarsal tunnel, plantarfaciitis right Prior Level of Function Current Living Status: Spouse Locomotion (Upon Admit): Independent Established Durable Medical Eq: Front Wheeled Walker, Manual Wheelchair, Wheelchair Ramp knee scooter Subjective Entry Into Home: Ramp Objective Objective NWB right foot Motor Control Motor Control: Motor Control WNL ROM ROM: WFL, except focal deficit Strength Strength: WFL Transfer Transfers (B, C, W/C) (FIM): 5 Gait Right Lower Extremity: Right Weight Bearing Status RLE: Non Weight Bearing Left Lower Extremity: Left Weight Bearing Status LLE: Full Weight Bearing will utilize knee scoot in home, as well as w/c for mobility Treatment Rendered Treatment: Reviewed Precautions (transfer training NWB right foot w/c to toilet and back), Caregiver Instruction Assessment/Goals Goal Time Frame: 1 Visit Plan PT/Family Agrees to Plan: Yes Time Time In: 1150 Time Out: 1208 Total Billed Treatment Time: 18 [facility] May 11, 2020 12:14
--- NOTE | 2020-05-11 14:04 | OPERATIVE REPORT ---
DATE OF SERVICE: 05/11/2020 SURGEON: Kim Garza DPM. PREOPERATIVE DIAGNOSES: 1. Tarsal tunnel syndrome, right. 2. Plantar fasciitis, right. 3. Posterior tibial tendinosis, right. POSTOPERATIVE DIAGNOSES: 1. Tarsal tunnel syndrome, right. 2. Plantar fasciitis, right. 3. Posterior tibial tendinosis, right. PROCEDURE: 1. Tarsal tunnel release, right. 2. Plantar fascial release, right. WOUND CLASS: Clean. ANESTHESIA: General. HEMOSTASIS: Pneumatic thigh tourniquet at 250 mmHg. INDICATIONS: This is a 60-year-old female presents with chronic pain. Complains of chronic pain to her right foot and ankle area. The pain radiates down her foot. She also has some numbness associated with the foot. Conservative therapy is met with unsatisfactory results and the patient is agreeable to surgical intervention after risks and complications were discussed at length. No guarantees were extended to the patient and she is willing to proceed. DESCRIPTION OF PROCEDURE: The patient was brought back to the operating table, placed in secure supine position. General anesthetic was then induced. Appropriate timeout was performed. A pneumatic thigh tourniquet was placed on the right lower extremity over several layers of padding. The right foot was then prepped and draped in normal sterile manner. The right foot was then elevated, allowed to exsanguinate after which the tourniquet was inflated to 250 mmHg. Attention was then directed to the medial aspect of the right foot and ankle where a 9 cm longitudinal linear incision was created. The incision was created just posterior to the medial malleolus extending inferiorly and into the plantar medial arch along the tarsal tunnel. The incision was carefully deepened utilizing a combination of sharp and blunt dissection, cauterizing all necessary blood vessels as encountered. The retinaculum was encountered overlying the abductor muscle belly where the deep fascia was released. The flexor retinaculum overlying the tarsal tunnel was also identified, carefully tented after it was released, protecting the underlying neurovascular structures. The was identified. A good release of the tarsal tunnel from the posterior medial malleolus area down into the adductor hiatus was identified and appreciated at this time. Dissection was continued from the tarsal tunnel in between the abductor hallucis muscle belly and the quadratus plantae the fascia following Coulter's nerve inferiorly. Dissection continued from the inferior aspect of the foot releasing the fascia overlying the inferior aspect of the abductor muscle belly where utilizing a hemostat, the course of the Coulter's nerve was delineated from superior to inferior. The deep fascia was released along this area. Utilizing the tenting technique used previously to preserve the neurological and vascular structures. Digital probing was used to confirm appropriate release of the tarsal tunnel as well as the adductor hiatus with no significant binding of soft tissue structures. With a release of the tarsal tunnel and medial calcaneal nerve we proceeded to release the plantar fascia. The medial band was released utilizing sharp and blunt dissection. The central band was found to be extremely thickened and dystrophic. This was also released and a sample of approximately 1 cm was sent for gross and microscopic evaluation. The area was flushed with copious amounts of normal saline. No other abnormalities were visualized in the current incision. The patient also demonstrated preoperatively symptoms of posterior tibial tendinosis; however, this would have extended the another direction of the incision and I felt that with the release of the tarsal tunnel and plantar fascia she is more likely to have symptomatic relief and less stressed to the posterior tibial tendon, which I thought and the patient agreed was secondary to her primary problem, which is heel pain. Closure was performed at this time utilizing 4-0 Vicryl for subcutaneous approximation followed by 4-0 Prolene in a horizontal mattress type stitch for the medial aspect of the incision with simple interrupted type stitches for the inferior aspect of the incision. Excellent coaptation and skin closure was appreciated at this time. Postoperative injection consisted of 20 mL of 0.5% Marcaine injected a local infusion to the surgical site followed by 10 mg dexamethasone. Postoperative dressing consisted of Betadine soaked Adaptic, sterile 4 x 4, sterile Kerlix and Coban wrap. Soft roll, ABDs and a posterior splint secured with Jared wraps. It should be noted prior to closure, the tourniquet was released and there were no active bleeders. There is some subcutaneous bleeding that was cauterized prior to closure. The patient tolerated the anesthesia and procedure well, was transported from the operating room to the recovery room with vital signs stable and vascular status intact to all digits of the right foot. She is to be nonweightbearing on the right lower extremity and follow up in my office in 10 days period of time or sooner if necessary. Job ID: [id number] DocumentID: [id number] Dictated Date: 05/11/2020 09:45:12 Bark Spudder Date: 05/11/2020 14:03:22 Dictated By: KIM GARZA DPM
== END 2020-05-11 12:15 | disposition home or self-care (01) ==
LOC: SDC 06:15
PROVIDERS: ATTEND Podiatrist Foot & Ankle Surgery
DX: G57.51 Tarsal tunnel syndrome, right lower limb (principal); M72.2 Plantar fascial fibromatosis; M76.821 Posterior tibial tendinitis, right leg; I10 Essential (primary) hypertension; M79.7 Fibromyalgia; K21.9 Gastro-esophageal reflux disease without esophagitis; E66.9 Obesity, unspecified; Z86.718 Personal history of other venous thrombosis and embolism; Z68.32 Body mass index [BMI] 32.0-32.9, adult; Z79.890 Hormone replacement therapy; Z87.891 Personal history of nicotine dependence; Z79.899 Other long term (current) drug therapy; Z86.711 Personal history of pulmonary embolism; Z88.5 Allergy status to narcotic agent; Z88.8 Allergy status to other drugs, medicaments and biological substances; Z88.1 Allergy status to other antibiotic agents; Z11.2 Encounter for screening for other bacterial diseases
CPT/HCPCS: 87081

== ENCOUNTER → 2020-05-28 | Outpatient (CLI) | payer BC ==
--- NOTE | 2020-05-28 12:47 | Diagnostic Imaging Report ---
PROCEDURE: US right lower extremity venous. TECHNIQUE: Multiple real-time grayscale images were obtained over the right lower extremity in various projections. Additional spectral analysis and color Doppler duplex images were also obtained. INDICATION: Recent foot surgery, now with right lower extremity pain and swelling. FINDINGS: There is no evidence of right lower extremity DVT. Right lower extremity deep venous system shows normal compressibility with normal response to augmentation and Valsalva. No fluid collection or mass is detected. IMPRESSION: No evidence of right lower extremity DVT. Dictated by: Dictated on workstation # [id number]
== END ==
LOC: RAD 12:00
PROVIDERS: ATTEND Podiatrist Foot & Ankle Surgery
DX: M79.661 Pain in right lower leg (principal); M79.89 Other specified soft tissue disorders; R60.0 Localized edema; Z98.890 Other specified postprocedural states

== ENCOUNTER → 2020-06-15 | Outpatient (CLI) | payer BC | LOC: LABNPT 08:04 | PROVIDERS: ATTEND Orthopaedic Surgery | DX: Z01.812 Encounter for preprocedural laboratory examination (principal); Z20.828 Contact with and (suspected) exposure to other viral communicable diseases | CPT/HCPCS: 87635 ==

== ENCOUNTER 2020-08-04 10:33 | Outpatient (RCR) | payer BC | END 2020-09-08 16:00 | disposition home or self-care (01) | PROVIDERS: ATTEND Nurse Practitioner | DX: M70.62 Trochanteric bursitis, left hip (principal); M70.61 Trochanteric bursitis, right hip; Z90.710 Acquired absence of both cervix and uterus; Z98.890 Other specified postprocedural states ==

== ENCOUNTER 2020-08-18 10:57 | Outpatient (RCR) | payer BC | END 2020-09-08 15:55 | disposition home or self-care (01) | PROVIDERS: ATTEND Orthopaedic Surgery | DX: M75.122 Complete rotator cuff tear or rupture of left shoulder, not specified as traumatic (principal); G57.51 Tarsal tunnel syndrome, right lower limb; M25.571 Pain in right ankle and joints of right foot; I10 Essential (primary) hypertension; Z20.828 Contact with and (suspected) exposure to other viral communicable diseases; Z98.890 Other specified postprocedural states ==

== ENCOUNTER 2021-12-15 10:22 | Outpatient (RCR) | payer BC ==
[~2021-12-15 10:22] MED LIST changes: -LISI-556 PO; +LISI5TAB20 PO
== END 2021-12-16 | disposition home or self-care (01) ==
PROVIDERS: ATTEND Orthopaedic Surgery
DX: M17.11 Unilateral primary osteoarthritis, right knee (principal); I10 Essential (primary) hypertension; Z96.651 Presence of right artificial knee joint

== ENCOUNTER → 2022-04-20 | Outpatient (CLI) | payer BC ==
--- NOTE | 2022-04-21 08:38 | Diagnostic Imaging Report ---
INDICATION: Routine screening. Comparison is made with prior mammogram 04/03/2019 and 12/07/2017. 2-D and 3-D bilateral screening mammography was performed with CAD. Scattered fibroglandular densities are identified bilaterally. Benign nodules in the upper outer left breast are stable. No new mass or malignant-appearing microcalcifications are seen. Axillae are unremarkable. IMPRESSION: No mammographic features suspicious for malignancy are identified. ACR BI-RADS Category 2: Benign findings. Result letter will be mailed to the patient. Note: At least 10% of breast cancer is not imaged by mammography. BI-RADS Category 2 Dictated by: Dictated on workstation # [id number]
== END ==
LOC: RAD 14:42
PROVIDERS: ATTEND Pediatrics
DX: Z12.31 Encounter for screening mammogram for malignant neoplasm of breast (principal)
CPT/HCPCS: 77063; 77067

== ENCOUNTER 2022-05-03 05:42 | Outpatient (CLI) | payer BC ==
[~2022-05-03] VITALS: Ht 160 cm; Wt 89.4 kg
[2022-05-05] MEDS ORDERED: LOSA25TA41 PO (09:58)
== END 2022-05-05 11:01 ==
LOC: PREOP 05:42
PROVIDERS: ATTEND Podiatrist Foot & Ankle Surgery
DX: Z01.818 Encounter for other preprocedural examination (principal); M76.62 Achilles tendinitis, left leg

== ENCOUNTER 2022-05-09 08:25 | Day surgery (SDC) | payer BC ==
[~2022-05-09] VITALS: Ht 160 cm; Wt 85.9 kg
[2022-05-09] VITALS (12 sets, daily range): BP systolic 100–152; BP diastolic 61–94
[~2022-05-09 08:25] MED LIST changes: +LOSA25TA41 PO
[2022-05-09] MEDS ORDERED: BUPIVACAINE 0.5% 30 ML (SENSORCAINE) VIAL ONE (08:38)
[2022-05-09] MEDS ORDERED: BUPIVACAINE 0.25% 30 ML (SENSORCAINE) VIAL ONE (08:39)
[2022-05-09] MEDS ORDERED: ONDANSETRON 4 MG/2 ML (SDV) Z0FRAN IV ONE (08:45)
[2022-05-09] MEDS ORDERED: SCOPOLAMINE 1.5 MG (TRANSDERM-SCOP) PATCH TOP ONE (08:45)
[2022-05-09] MEDS ORDERED: FAMOTIDINE 20MG/2ML IV (PEPCID) IV ONE (08:45)
[2022-05-09] MEDS ORDERED: ceFAZolin INJECTION 1,000 MG VIAL IV ONE (08:45)
[2022-05-09] MEDS ORDERED: LACTATED RINGERS 1,000 ML IV PRN (08:45)
[2022-05-09] MEDS ORDERED: ONDANSETRON 4 MG/2 ML (SDV) Z0FRAN ONE (09:12)
[2022-05-09] MEDS ORDERED: proPOfol 200 MG/20 ML (DIPRIVAN) VIAL IV ONE (09:12)
[2022-05-09] MEDS ORDERED: LIDOCAINE PF 2% 5 ML (XYLOCAINE) VIAL ONE (09:12)
[2022-05-09] MEDS ORDERED: GLYCOPYRROLATE 0.2 MG/ML (ROBINUL) 2 ML VIAL ONE (09:12)
[2022-05-09] MEDS ORDERED: MIDAZOLAM 2 MG/2 ML (VERSED) VIAL ONE (09:13)
[2022-05-09] MEDS ORDERED: fentaNYL INJ 100 MCG/2 ML AMP ONE (09:13)
--- NOTE | 2022-05-09 09:44 | Progress Note-Pre Operative ---
Pre-Operative Progress Note Date of Available H&P: May 09, 2022 Date H&P Reviewed: May 09, 2022 Time H&P Reviewed: 09:43 Pre-Operative Diagnosis: Achilles tendonitis, Exostosis, left foot EVELYN GARZA DPM May 09, 2022 09:44
[2022-05-09] MEDS ORDERED: ROCURONIUM 50 MG/5 ML (ZEMURON) VIAL IV ONE (11:07)
[2022-05-09] MEDS ORDERED: SEVOFLURANE (ULTANE) 15 ML INHAL SOLN ONE (11:08)
--- NOTE | 2022-05-09 11:12 | Progress Note-Post Operative ---
Post-Operative Progess Note Surgeon (s)/Tester Wafer Substrate (s) Surgeon EVELYN GARZA DPM Tester Wafer Substrate: none Pre-Operative Diagnosis Achilles tendonitis, Exostosis, left foot Post-Operative Diagnosis Same plus Achilles tendon tear, left foot Procedure & Operative Findings Date of Procedure 05/09/22 Procedure Performed/Findings Achilles tendon repair, exostectomy, left Anesthesia Type General Estimated Blood Loss Estimated blood loss (mL): minimal Specimens/Packing Specimens Removed bone from calcaneus, exostosis EVELYN GARZA DPM May 09, 2022 11:12
[2022-05-09] MEDS ORDERED: HYDROcodone/APAP 5 MG/325 MG (LORTAB) TAB PO PRN (11:15)
[2022-05-09] MEDS ORDERED: LACTATED RINGERS 1,000 ML IV SCH (11:15)
[2022-05-09] MEDS ORDERED: ACHD5005 PO (11:23)
--- NOTE | 2022-05-09 11:23 | Anesthesia-General Post-Op ---
General Patient Condition Mental Status/LOC: Same as Preop Cardiovascular: Satisfactory Nausea/Vomiting: Absent Respiratory: Satisfactory Pain: Controlled Complications: Absent Post Op Complications Complications None Follow Up Care/Instructions Patient Instructions None needed. Anesthesia/Patient Condition Patient Condition Patient is doing well, no complaints, stable vital signs, no apparent adverse anesthesia problems. No complications reported per nursing. PREET RINCON CRNA May 09, 2022 11:23
[2022-05-09] MEDS ORDERED: ONDA8TAB13 PO (11:29)
[2022-05-09] MEDS ORDERED: diphenhydrAMINE 50 MG/ML INJ (BENADRYL) IVP ONE (11:30)
[2022-05-09] MEDS ORDERED: MEPERIDINE (DEMEROL) INJ 50 MG/ML IVP ONE (11:30)
[2022-05-09] MEDS ORDERED: ONDANSETRON 4 MG/2 ML (SDV) Z0FRAN IVP PRN (11:30)
[2022-05-09] MEDS ORDERED: morphine INJ 10 MG/ML 1ML (SYR OR VIAL) IVP ONE (11:30)
[2022-05-09] MEDS ORDERED: HYDROmorphone 2 MG/ML VIAL (DILAUDID) IV ONE (11:30)
[2022-05-09] MEDS ORDERED: HYDROcodone/APAP 5 MG/325 MG (LORTAB) TAB ONE (12:31)
--- NOTE | 2022-05-09 13:17 | Physical Therapy Ortho Eval ---
PT Orthopedic Evaluation Type of Surgery Achilles tendonitis, Exostosis, left foot Prior Level of Function Current Living Status: Spouse Locomotion (Upon Admit): Independent Established Durable Medical Eq: Front Wheeled Walker, Wheelchair Ramp, Crutches knee scooter Subjective Entry Into Home: Ramp Motor Control Motor Control: Motor Control WNL ROM ROM: WFL, except focal deficit Strength Strength: WFL Transfer SCALE: Activities may be completed with or without assistive devices. 4-Pypvgewppw-qvalsju completes the activity by him/herself with no assistance from a helper. 5-Set-up or Clean-up Assistance-helper sets up or cleans up; patient completes activity. [place] assists only prior to or following the activity. 4-Supervision or Touching Assistance-helper provides verbal cues and/or touching/steadying and/or contact guard assistance as patient completes activity. Assistance may be provided throughout the activity or intermittently. 3-Partial/Moderate Assistance-helper does LESS THAN HALF the effort. [place] lifts, holds or supports trunk or limbs, but provides less than half the effort. 2-Substantial/Maximal Assistance-helper does MORE THAN HALF the effort. [place] lifts or holds trunk or limbs and provides more than half the effort. 9-Ztmgrtwht-jxybjs does ALL the effort. Patient does none of the effort to complete the activity. Or, the assistance of 2 or more helpers is required for the patient to complete the activity. If activity was not attempted, code reason: 7-Patient Refused. 9-Not Applicable-not attempted and the patient did not perform the activity before the current illness, exacerbation or injury. 10-Not Attempted due to Environmental Limitations-(lack of equipment, weather restraints, etc.). 88-Not Attempted due to Medical Conditions or Safety Concerns. Transfers (B, C, W/C) (QC): 4 Gait Gait Assistive Device: FWW Right Lower Extremity: Right Weight Bearing Status RLE: Full Weight Bearing Left Lower Extremity: Left Weight Bearing Status LLE: Non Weight Bearing Gait (QC): 4 Distance (QC): 6=458-98 ft Distance: 50' x 2 Gait Level of Assist: 4 Treatment Rendered Treatment: Gait Train, Caregiver Instruction Assessment/Goals Goal Time Frame: 1 Visit Safe Ambulation: Yes Plan Treatment Plan: Discharge, Education, Gait, Safety Treatment Duration: eval PT/Family Agrees to Plan: Yes Time Time In: 1255 Time Out: 1308 Total Billed Treatment Time: 13 Billed Treatment Time 1 visit [facility] 13 min TEA PARMAR PT May 09, 2022 13:17
--- NOTE | 2022-05-09 15:29 | OPERATIVE REPORT ---
DATE OF SERVICE: 05/09/2022 SURGEON: Kim Garza DPM. PREOPERATIVE DIAGNOSES: Partial tear of the Achilles' tendon, left with exostosis, left calcaneus. POSTOPERATIVE DIAGNOSES: Partial tear of the Achilles' tendon, left with exostosis, left calcaneus. PROCEDURES PERFORMED: 1. Achilles' tendon repair, left foot. 2. Exostectomy, left foot. WOUND CLASS: Clean. ANESTHESIA: General. HEMOSTASIS: Pneumatic thigh tourniquet at 250 mmHg. INDICATIONS FOR PROCEDURE: This 62-year-old female presents complaining of a painful left heel and Achilles' tendon. Conservative therapy is met with unsatisfactory results and the patient is agreeable to surgical intervention after the risks and complications were discussed at length. No guarantees were extended to the patient and she is willing to proceed. DESCRIPTION OF PROCEDURE: The patient was brought back to the operating table and placed in a secure supine position. Appropriate timeout was performed. A general anesthetic was then induced. She was safely applied in a prone position. Next, a pneumatic thigh tourniquet was placed on left lower extremity over several layers of padding. The left foot was then prepped and draped in a normal sterile manner. The left foot was then elevated, allowed to exsanguinate after which the tourniquet was inflated to 250 mmHg. Attention was then directed to the posterior aspect of the left calcaneus and distal Achilles' tendon, where a 6 cm curvilinear incision was created. The incision was just lateral to midline and curving inferior and medial at the distal aspect of the incision. The incision was deepened in the same plane with great care to identify and retract all vital neurovascular structures. A blunt dissection was carried out beyond subcutaneous tissue and a longitudinal peritenon incision was made. A midline incision was made to the Achilles' tendon at the posterior aspect of the calcaneus and carried out down to bone. Within this, substance was an osseous structure, which was excised from the surrounding Achilles' tendon. This was sent for gross and microscopic evaluation. Yellow, irregular fibers were identified within this area. A bursal sac was also identified to the posterior calcaneus. These were debrided and irrigated. The yellow dystrophic tendon fibers were excised. This debulked the posterior aspect of the calcaneus as well. The remaining Achilles' tendon was intact medially and laterally. Next, the posterior aspect of the calcaneus as a large posterior eminence at the insertion of the Achilles. This was reduced utilizing an osteotome and mallet, rongeur, and a power rasp. The wound was flushed with copious amounts of normal saline. Closure was then performed in layers. To reattach the Achilles tendon, two G2 anchors were introduced to the posterior aspect of the calcaneus, medial and lateral midline. The Ethibond suture was then passed through the Achilles' tendon. This allowed for excellent fixation of the Achilles' tendon down to bone. Next, the longitudinal rent of the Achilles' tendon was repaired with a combination of 2-0 Ethibond in a running type stitch as well as 3-0 Vicryl. The peritenon was approximated with 4-0 Vicryl. The subcutaneous tissue was reapproximated with 4-0 Vicryl and skin closure with 4-0 Prolene in a horizontal mattress type stitch. Postoperative injection consisted of 10 mL of 0.25% Marcaine injected in a local infusion to the surgical site. Postoperative dressing consisted of Betadine soaked Adaptic, sterile 4 x 4, sterile Kerlix, soft roll, ABD pads to the toes, heel and posterior proximal leg, followed by soft roll and a posterior splint secured with 4-inch and 6-inch Jared wrap. The patient tolerated the anesthesia and procedure well and was transported from the operating room to the recovery area with vital signs stable and vascular status intact to all digits of the left foot. The patient was given postoperative instructions to be nonweightbearing on the left lower extremity. She was also given a prescription for clindamycin as well as Vicodin. The patient indicated that she has an intolerance to some postoperative medication that she has handled hydrocodone well in the past. We will see the patient back in the office in approximately 10 days' period of time or sooner if necessary. Job ID: [id number] DocumentID: [id number] Dictated Date: 05/09/2022 11:37:23 Plasterer Stucco Date: 05/09/2022 15:29:03 Dictated By: KIM GARZA DPM
--- NOTE | 2022-05-09 16:07 | Diagnostic Imaging Report ---
INDICATION: Postop foot. COMPARISON: None. FINDINGS: Two radiographic views of the left foot were obtained. Evaluation is partially degraded by radiopaque cast material. There is soft tissue emphysema of the heel of the left foot. Two orthopedic anchors are also noted within the posterior calcaneus. No unexpected radiopaque foreign bodies are seen. Osseous structures are otherwise intact. Joint spaces are maintained. IMPRESSION: Soft tissue emphysema but no unexpected radiopaque foreign bodies in this post operative patient. Dictated by: Dictated on workstation # [id number]
== END 2022-05-09 14:00 ==
LOC: SDC 08:25
PROVIDERS: ATTEND Podiatrist Foot & Ankle Surgery
DX: M76.62 Achilles tendinitis, left leg (principal); M89.9 Disorder of bone, unspecified; Z79.899 Other long term (current) drug therapy
CPT/HCPCS: 27650; 28288; 73620; 87081; 97161; C1713